=== PATIENT | female | born 1960 | race Caucasian/White ===

== ENCOUNTER 2016-08-29 08:43 | Emergency (ER) | payer OTHER ==
[2016-08-29 08:51] VITALS: TEMP 98.5
[2016-08-29] MEDS ORDERED: Naproxen 550 mg Tab PO STA (09:12)
--- NOTE | 2016-08-29 09:16 | C.PDOC ---
History Of Present Illness Patient presents to ED c/o sore throat, runny nose, nonproductive cough, chills since . Patient denies chest pain, SOB, abdominal pain, nausea/vomiting /diarrhea, dysuria. Time Seen by Provider: 08/29/16 09:00 Chief Complaint (Nursing): ENT Problem History Per: Patient, Family History/Exam Limitations: Language Barrier (history as per ) Onset/Duration Of Symptoms: Days Current Symptoms Are (Timing): Still Present Symptoms Have Been: Continuous Severity: Mild Past Medical History Reviewed: Historical Data, Nursing Documentation, Vital Signs Vital Signs: Last Vital Signs Temp 98.5 F 08/29/16 08:49 Pulse 102 H 08/29/16 08:49 Resp 19 08/29/16 08:49 BP 133/76 08/29/16 08:49 Pulse Ox 99 08/29/16 08:49 - Medical History PMH: Diabetes Family History: States: No Known Family Hx - Social History Hx Alcohol Use: No Hx Substance Use: No Review Of Systems Except As Marked, All Systems Reviewed And Found Negative. Constitutional: Positive for: Fever, Chills ENT: Positive for: Nose Congestion, Throat Pain Cardiovascular: Negative for: Chest Pain, Palpitations Respiratory: Positive for: Cough. Negative for: Shortness of Breath, SOB with Excertion Gastrointestinal: Negative for: Nausea, Vomiting, Abdominal Pain, Diarrhea Genitourinary: Negative for: Dysuria Skin: Negative for: Rash Physical Exam - Physical Exam Appears: Well, Non-toxic, No Acute Distress Skin: Warm, Dry, No Rash Nose: Normal Oral Mucosa: Moist Tongue: Normal Appearing, No Lesions Lips: Normal Appearing, No Lesions Throat: Erythema (mild pharyngeal ), No Exudate, No Drooling, Other (no tonsillar swelling, uvula midline and normal in appearance) Lymphatic: No Adenopathy Cardiovascular: Rhythm Regular Respiratory: Normal Breath Sounds, No Rales, No Rhonchi, No Wheezing Neurological/Psych: Oriented x3 ED Course And Treatment O2 Sat by Pulse Oximetry: 99 (RA) Pulse Ox Interpretation: Normal Progress Note: Patient given PO naprosyn and Viscous lidocaine to gargle with. Rxs for Naprosyn, Chloraseptic and Tessalon given. Patient instructed to follow up with PMD in 1-2 days, and she understands she should return to ED if symptoms worsen. Disposition Counseled Patient/Family Regarding: Diagnosis, Need For Followup, Rx Given - Disposition Referrals: Alma Hilton MD [Staff Provider] - Disposition: HOME/ ROUTINE Disposition Time: 09:20 Condition: STABLE Additional Instructions: FOLLOW UP WITH YOUR DOCTOR IN 1-2 DAYS USE MEDICATIONS DIRECTED GARGLE WITH SALT WATER SEVERAL TIMES DAILY RETURN TO EMERGENCY ROOM IF SYMPTOMS WORSEN Prescriptions: Benzonatate [Tessalon Perles] 100 mg PO BID PRN #15 sgl PRN Reason: Cough Naproxen [Naprosyn Tab] 375 mg PO BID PRN #20 tab PRN Reason: pain Phenol/Glycerin [Chloraseptic [place]] 1 spray MM Q6 PRN #1 spray PRN Reason: THROAT PAIN Instructions: Viral Syndrome (ED) Print Language: TONGAN - POA Present On Arrival: None - Clinical Impression Clinical Impression: Viral upper respiratory infection, Viral pharyngitis
[2016-08-29] MEDS ORDERED: Naproxen 550 mg Tab PO ONE (09:17)
[2016-08-29 09:32] VITALS: BP 131/80; PULSE 92; RESP 16; O2SAT 100
== END 2016-08-29 09:32 | disposition home or self-care (01) ==
LOC: C.ER 08:43
DX: J02.8 Acute pharyngitis due to other specified organisms (principal)